=== PATIENT | female | born 2000 | race Two or more races ===

== ENCOUNTER 2021-09-20 22:49 | Emergency (ER) | payer SELFPAY ==
[~2021-09-20] VITALS: Ht 165.1 cm; Wt 110.0 kg
--- NOTE | 2021-09-20 23:25 | PHYS DOC ---
Past Medical History Past Surgical History: No Surgical History General Adult EDM: Chief Complaint: SHORTNESS OF BREATH HPI: HPI: Is a 21-year-old female who presents to the emergency department for shortness of breath, cough, vomiting, fevers. Patient reports she has a history of asthma but is out of her inhalers. She states that she just takes albuterol at home. She states that this feels like an asthma exacerbation. Patient denies sick exposures, loss of taste or smell, chest pain. She is fully vaccinated for COVI D-19. Patient is noted to be tachycardic in the emergency department and febrile. Patient is not hypoxic at this time and not requiring any oxygen. Review of Systems: Review of Systems: Constitutional: See HPI Respiratory: See HPI Cardiovascular: See HPI GI: See HPI Heart Score: C/O Chest Pain: No Risk Factors: Risk Factors: DM, Current or recent (<one month) smoker, HTN, HLP, family history of CAD, obesity. Risk Scores: Score 0 - 3: 2.5% MACE over next 6 weeks - Discharge Home Score 4 - 6: 20.3% MACE over next 6 weeks - Admit for Clinical Observation Score 7 - 10: 72.7% MACE over next 6 weeks - Early Invasive Strategies Allergies: Allergies: Allergies Coded Allergies Type Severity Reaction Last Updated Verified No Known Drug Allergies 09/20/21 No Physical Exam: PE: Constitutional: Well developed, well nourished, no acute distress, non-toxic appearance. [] HENT: Normocephalic, atraumatic, bilateral external ears normal, oropharynx moist, no oral exudates, nose normal. [] Eyes: PERRL, EOMI, conjunctiva normal, no discharge. [] Neck: Normal range of motion, no stridor Cardiovascular:Heart rate tachycardic rhythm, no murmur [] Lungs & Thorax: upper lobes clear, coarse lower lobes Abdomen: Bowel sounds normal, soft, no tenderness, no masses, no pulsatile masses. [] Skin: Warm, dry, no erythema, no rash. [] Back: Normal range of motion Extremities: No tenderness, no cyanosis, no clubbing, ROM intact, no edema. [] Neurologic: Alert and oriented X 3, normal motor function, normal sensory function, no focal deficits noted. [] Psychologic: Affect normal, judgement normal, mood normal. [] Current Patient Data: Vital Signs: Vital Signs Date Time Temp Pulse Resp B/P (MAP) Pulse Ox O2 Delivery O2 Flow Rate FiO2 09/20/21 23:11 101.4 118 22 132/74 (93) 98 Room Air 101.4 EKG: EKG: EKG performed by ER staff at 2336 shows sinus tachycardia with a rate of 107, QTc of 429, no STEMI read by Dr. Barker at 2349. [] Radiology/Procedures: Radiology/Procedures: [] Course & Med Decision Making: Course & Med Decision Making Pertinent Labs and Imaging studies reviewed. (See chart for details) [] Patient presents to the emergency department for shortness of breath, fever, cough, vomiting. Patient is tachycardic in the emergency department and she is febrile. ER consisted of blood work, chest x-ray, Covid and influenza testing. Due to her tachycardia, she was treated with IV fluids. Asthma exacerbation, treated with duoneb. Due to her fever she was treated with Tylenol and ibuprofen. Patient's blood work was unremarkable. Covid testing is pending and she will be notified of those results when they become available in approximately 2 days. Her chest x-ray as read by ER physician shows no acute findings. Patient symptoms started today so she will be discharged with Tamiflu and her albuterol inhaler for her asthma. Patient advised to follow-up with her primary care provider. I discussed with patient all findings and diagnostic testing as well as the need to follow-up with PCP for further evaluation and treatment or return to the ER if any new or worsening symptoms. Strict return precautions were also discussed at length. Patient voiced understanding and agreement with the plan. Patient is hemodynamically stable at the time of disposition. Dragon Disclaimer: GoPlaceIt Disclaimer: This electronic medical record was generated, in whole or in part, using a voice recognition dictation system. Departure Departure Impression: Primary Impression: Influenza A Disposition: 01 HOME / SELF CARE / HOMELESS Condition: GOOD Patient Instructions: Influenza A (H1N1) Additional Instructions: You are seen in the emergency department today for shortness of breath, fever and cough. Your work-up in the ER was unremarkable. Your influenza test was positive for flu A. You are being discharged home with Tamiflu that you can take to help shorten your symptoms. We tested you in the emergency department today for COVID-19, you will be notified of those results when they become available in approximately 2 days. Please self isolate until you receive these results. You are also being discharged home with an albuterol inhaler that you can use as needed. Please follow-up with your primary care provider tomorrow regarding your ER visit. Please return to the emergency department if you develop shortness of breath, chest pain, high fevers refractory to treatment, intractable nausea or vomiting, weakness or any new or worsening concerns. Scripts Albuterol Sulfate (PROAIR HFA INHALER) 8.5 Gm Hfa.aer.ad 2 PUFF IH PRN Q4-6HRS PRN for wheezing for 21 Days, #1 INHALER 0 Refills Prov: DIPAK WORRELL ASSISTANT DIRECTOR OF [employer]ATIONS 09/21/21 Oseltamivir Phosphate (TAMIFLU) 75 Mg Capsule 1 CAP PO BID for 5 Days, #10 CAP 0 Refills Prov: DIPAK WORRELL APRN 09/21/21 DIPAK WORRELL APRN Sep 20, 2021 23:25
[2021-09-20] MEDS ORDERED: ACETAMINOPHEN 500 MG TABLET PO ONE (23:45)
[2021-09-20] MEDS ORDERED: IV NORMAL SALINE 1000ML BAG 1,000 ML IV ONE (23:45)
[2021-09-20] MEDS ORDERED: IPRATRPIUM/ALBUTEROL 0.5/2.5MG 3 ML NEBU. NEB ONE (23:45)
--- NOTE | 2021-09-20 23:52 | EKG ---
[facility] [address] [place] [address] Test Date: 2021-09-20 Test Time: 23:36:24 Pat Name: MYLES POSADAS Department: Room: Gender: F Sizer Hand: : 2000 Requested By: DIPAK WORRELL Order Number: [id number] Reading MD: Michele Roblero Measurements Intervals [place] Rate: 107 P: 45 [place]: 144 QRS: 14 QRSD: 78 T: 27 QT: 322 QTc: 429 Interpretive Statements SINUS RHYTHM Electronically Signed On 09-22-2021 12:41:37 [facility] FORMER by Michele Roblero
[2021-09-20 23:59] LABS: BASO % 0 % (0-3); EOS % 0 % (0-3); HEMATOCRIT 35.7 % (36.0-47.0); HEMOGLOBIN 11.5 g/dL (12.0-15.5); LYMPH # 0.6 x10^3/uL (1.0-4.8); LYMPH % 9 % (24-48); MEAN CORPUSCULAR HEMOGLOBIN 26 pg (25-35); MEAN CORPUSCULAR HGB CONC 32 g/dL (31-37); MEAN CORPUSCULAR VOLUME 79 fL (79-100); MONO # 0.6 x10^3/uL (0.0-1.1); MONO % 10 % (0-9); NEUT % 81 % (31-73); PLATELET COUNT 173 x10^3/uL (140-400); RED CELL DISTRIBUTION WIDTH 14.4 % (11.5-14.5); WHITE BLOOD COUNT 6.2 x10^3/uL (4.0-11.0)
[2021-09-21 00:01] LABS: CALCIUM 8.3 mg/dL (8.5-10.1); CREATININE 0.7 mg/dL (0.6-1.0); GFR 105.6; POTASSIUM 3.9 mmol/L (3.5-5.1)
[2021-09-21 00:03] LABS: INFLUENZA A PATIENT POSITIVE (NEGATIVE); INFLUENZA B PATIENT NEGATIVE (NEGATIVE)
[2021-09-21 00:06] LABS: ALBUMIN 3.5 g/dL (3.4-5.0); TOTAL BILIRUBIN 0.3 mg/dL (0.2-1.0); TOTAL PROTEIN 6.9 g/dL (6.4-8.2)
[2021-09-21] MEDS ORDERED: OSEL75CA PO (00:07)
[2021-09-21] MEDS ORDERED: ALBU2.5V8 IH (00:08)
[2021-09-21] MEDS ORDERED: IBUPROFEN 200 MG TABLET. PO ONE (01:30)
[2021-09-21 01:35] VITALS: BP 104/52
--- NOTE | 2021-09-21 05:15 | RAD ---
INDICATION: Reason: soa / Spl. Instructions: / History: COMPARISON: None. FINDINGS: Single view of chest obtained. Left lung base is largely obscured by overlying structures. No definite consolidation elsewhere in th e lungs. Cardiac silhouette unremarkable IMPRESSION: * Left lung base obscured by overlying structures without definite consolidation elsewhere in the willian ngs. Electronically signed by: Quintin Gomez MD (09/21/2021 5:12 AM) [id number]
--- NOTE | 2021-09-22 15:26 | NUR ---
IP: Informed pt of negative covid test. Pt verbalized understanding.
== END 2021-09-21 02:00 | disposition home or self-care (01) ==
LOC: ER 22:49
DX: J10.1 Influenza due to other identified influenza virus with other respiratory manifestations (principal); Z20.822 Contact with and (suspected) exposure to COVID-19
CPT/HCPCS: 36415; 71045; 80053; 84484; 85025; 87804; 93005; 94640; 96360; 99285; G0238; J7030; U0003; U0005